=== PATIENT | male | born 2000 | race Caucasian/White ===

== ENCOUNTER 2020-08-07 08:16 | Outpatient (REF) | payer OTHER, SELFPAY ==
[2020-08-07 12:03] LABS: MANUAL DIFF FLAG NO
[2020-08-07 12:06] LABS: Basophils Percent Auto 0.5 % (0-2); Eosinophils Absolute Auto 0.1 X10*3/uL (0.0-0.4); Eosinophils Percent Auto 1.5 % (0-4); Hematocrit 45.5 % (42-52); Hemoglobin 15.2 g/dl (14.0-18.0); Lymphocytes Absolute Auto 2.8 X10*3/uL (1.2-4.9); Lymphocytes Percent Auto 48.4 % (20-40); Mean Corpuscular HGB Conc 33.4 g/dl (31.0-36.0); Mean Corpuscular Hemoglobin 29.6 pg (27.0-33.0); Mean Corpuscular Volume 88.5 fL (80-98); Mean Platelet Volume 9.6 fL (9.4-12.4); Monocytes Absolute Auto 0.5 X10*3/uL (0.1-1.2); Monocytes Percent Auto 9.1 % (2-11); Neutrophils Absolute Auto 2.4 X10*3/uL (2.0-8.3); Neutrophils Percent Auto 40.5 % (45-73); Platelet Count 271 X10*3/uL (160-400); Red Blood Count 5.14 X10*6/uL (4.60-5.80); Red Cell Distribution Width 12.1 % (11.0-16.0); White Blood Count 5.9 X10*3/uL (4.8-10.8)
[2020-08-07 12:32] LABS: Alanine Aminotransferase 43 U/L (0-40); Albumin Level 4.7 g/dL (3.5-5.0); Alkaline Phosphatase 100 U/L (39-117); Aspartate Amino Transferase 27 U/L (5-37); Bilirubin Direct 0.4 mg/dL (0.0-0.5); Bilirubin Total 1.1 mg/dL (0.0-1.0); Blood Urea Nitrogen 13 mg/dL (9-16); Calcium 9.7 mg/dL (8.4-10.2); Cholesterol 183 mg/dL; Estimated Glomerular Filt Rate > 60; HDL Cholesterol 45 mg/dL; LDL Cholesterol Calculated 116 mg/dl; Total Protein 7.9 g/dL (6.5-8.0); Triglycerides 110 mg/dL
== END 2020-08-07 08:17 | disposition home or self-care (01) ==
LOC: HO.WFDLDS 08:16
PROVIDERS: PCP Pediatrics; Visit Provider Dermatology
DX: L70.9 Acne, unspecified (principal)
CPT/HCPCS: 36415; 80061; 80076; 82310; 82565; 84520; 85025

== ENCOUNTER 2020-09-16 08:16 | Outpatient (REF) | payer OTHER, SELFPAY ==
[2020-09-16 10:40] LABS: MANUAL DIFF FLAG NO
[2020-09-16 10:44] LABS: Basophils Percent Auto 0.4 % (0-2); Eosinophils Absolute Auto 0.1 X10*3/uL (0.0-0.4); Eosinophils Percent Auto 2.2 % (0-4); Hematocrit 43.3 % (42-52); Hemoglobin 14.6 g/dl (14.0-18.0); Imm Gran Abs Auto 0.01 X10*3/uL (0.00-0.03); Imm Gran Pct Auto 0.2 % (0.0-0.4); Lymphocytes Absolute Auto 2.4 X10*3/uL (1.2-4.9); Lymphocytes Percent Auto 48.8 % (20-40); Mean Corpuscular HGB Conc 33.7 g/dl (31.0-36.0); Mean Corpuscular Hemoglobin 29.6 pg (27.0-33.0); Mean Corpuscular Volume 87.7 fL (80-98); Mean Platelet Volume 10.1 fL (9.4-12.4); Monocytes Absolute Auto 0.5 X10*3/uL (0.1-1.2); Monocytes Percent Auto 10.1 % (2-11); Neutrophils Absolute Auto 1.9 X10*3/uL (2.0-8.3); Neutrophils Percent Auto 38.3 % (45-73); Platelet Count 252 X10*3/uL (160-400); Red Blood Count 4.94 X10*6/uL (4.60-5.80); Red Cell Distribution Width 12.2 % (11.0-16.0)
[2020-09-16 12:32] LABS: Alanine Aminotransferase 52 U/L (0-40); Albumin Level 4.7 g/dL (3.5-5.0); Alkaline Phosphatase 90 U/L (39-117); Aspartate Amino Transferase 32 U/L (5-37); Bilirubin Direct 0.3 mg/dL (0.0-0.5); Bilirubin Total 0.7 mg/dL (0.0-1.0); Cholesterol 193 mg/dL; HDL Cholesterol 44 mg/dL; LDL Cholesterol Calculated 127 mg/dl; Total Protein 7.8 g/dL (6.5-8.0); Triglycerides 114 mg/dL
== END 2020-09-16 08:17 | disposition home or self-care (01) ==
LOC: HO.WFDLDS 08:16
PROVIDERS: Visit Provider Dermatology
DX: L70.0 Acne vulgaris (principal)
CPT/HCPCS: 36415; 80061; 80076; 85025

== ENCOUNTER 2020-10-16 07:36 | Outpatient (REF) | payer OTHER, SELFPAY ==
[2020-10-16 10:37] LABS: MANUAL DIFF FLAG NO
[2020-10-16 10:57] LABS: Basophils Percent Auto 0.4 % (0-2); Eosinophils Absolute Auto 0.1 X10*3/uL (0.0-0.4); Eosinophils Percent Auto 1.8 % (0-4); Hematocrit 41.7 % (42-52); Hemoglobin 13.8 g/dl (14.0-18.0); Imm Gran Abs Auto 0.01 X10*3/uL (0.00-0.03); Imm Gran Pct Auto 0.2 % (0.0-0.4); Lymphocytes Absolute Auto 2.7 X10*3/uL (1.2-4.9); Lymphocytes Percent Auto 48.8 % (20-40); Mean Corpuscular HGB Conc 33.1 g/dl (31.0-36.0); Mean Corpuscular Hemoglobin 29.5 pg (27.0-33.0); Mean Corpuscular Volume 89.1 fL (80-98); Monocytes Absolute Auto 0.6 X10*3/uL (0.1-1.2); Monocytes Percent Auto 11.1 % (2-11); Neutrophils Absolute Auto 2.1 X10*3/uL (2.0-8.3); Neutrophils Percent Auto 37.7 % (45-73); Platelet Count 260 X10*3/uL (160-400); Red Blood Count 4.68 X10*6/uL (4.60-5.80); Red Cell Distribution Width 12.5 % (11.0-16.0); White Blood Count 5.6 X10*3/uL (4.8-10.8)
[2020-10-16 11:22] LABS: Alanine Aminotransferase 37 U/L (0-40); Albumin Level 4.4 g/dL (3.5-5.0); Alkaline Phosphatase 99 U/L (39-117); Aspartate Amino Transferase 26 U/L (5-37); Bilirubin Direct 0.2 mg/dL (0.0-0.5); Bilirubin Total 0.4 mg/dL (0.0-1.0); Cholesterol 163 mg/dL; HDL Cholesterol 33 mg/dL; LDL Cholesterol Calculated 87 mg/dl; Total Protein 7.6 g/dL (6.5-8.0); Triglycerides 217 mg/dL
== END 2020-10-16 07:37 | disposition home or self-care (01) ==
LOC: HO.WFDLDS 07:36
PROVIDERS: PCP Pediatrics; Visit Provider Dermatology
DX: L70.0 Acne vulgaris (principal)
CPT/HCPCS: 36415; 80061; 80076; 85025

== ENCOUNTER 2020-11-14 08:33 | Outpatient (REF) | payer OTHER, SELFPAY ==
[2020-11-14 10:24] LABS: MANUAL DIFF FLAG NO
[2020-11-14 10:28] LABS: Basophils Percent Auto 0.2 % (0-2); Eosinophils Absolute Auto 0.1 X10*3/uL (0.0-0.4); Eosinophils Percent Auto 1.6 % (0-4); Hematocrit 41.7 % (42-52); Hemoglobin 13.9 g/dl (14.0-18.0); Lymphocytes Absolute Auto 2.2 X10*3/uL (1.2-4.9); Lymphocytes Percent Auto 49.5 % (20-40); Mean Corpuscular HGB Conc 33.3 g/dl (31.0-36.0); Mean Corpuscular Hemoglobin 29.6 pg (27.0-33.0); Mean Corpuscular Volume 88.9 fL (80-98); Mean Platelet Volume 9.9 fL (9.4-12.4); Monocytes Absolute Auto 0.5 X10*3/uL (0.1-1.2); Monocytes Percent Auto 10.2 % (2-11); Neutrophils Absolute Auto 1.7 X10*3/uL (2.0-8.3); Neutrophils Percent Auto 38.5 % (45-73); Platelet Count 244 X10*3/uL (160-400); Red Blood Count 4.69 X10*6/uL (4.60-5.80); Red Cell Distribution Width 12.6 % (11.0-16.0); White Blood Count 4.4 X10*3/uL (4.8-10.8)
[2020-11-14 10:59] LABS: Alanine Aminotransferase 56 U/L (0-40); Albumin Level 4.4 g/dL (3.5-5.0); Alkaline Phosphatase 95 U/L (39-117); Aspartate Amino Transferase 34 U/L (5-37); Bilirubin Direct 0.2 mg/dL (0.0-0.5); Bilirubin Total 0.8 mg/dL (0.0-1.0); Cholesterol 175 mg/dL; HDL Cholesterol 37 mg/dL; LDL Cholesterol Calculated 112 mg/dl; Total Protein 7.5 g/dL (6.5-8.0); Triglycerides 133 mg/dL
== END 2020-11-14 08:34 | disposition home or self-care (01) ==
LOC: HO.WFDLDS 08:33
PROVIDERS: Visit Provider Dermatology
DX: L70.0 Acne vulgaris (principal)
CPT/HCPCS: 36415; 80061; 80076; 85025

== ENCOUNTER 2020-12-22 07:34 | Outpatient (REF) | payer OTHER, SELFPAY ==
[2020-12-22 10:52] LABS: MANUAL DIFF FLAG NO
[2020-12-22 11:11] LABS: Basophils Percent Auto 0.2 % (0-2); Eosinophils Absolute Auto 0.1 X10*3/uL (0.0-0.4); Hematocrit 42.4 % (42-52); Hemoglobin 14.4 g/dl (14.0-18.0); Imm Gran Abs Auto 0.02 X10*3/uL (0.00-0.03); Imm Gran Pct Auto 0.3 % (0.0-0.4); Lymphocytes Absolute Auto 3.1 X10*3/uL (1.2-4.9); Lymphocytes Percent Auto 52.4 % (20-40); Mean Corpuscular Hemoglobin 30.3 pg (27.0-33.0); Mean Corpuscular Volume 89.3 fL (80-98); Mean Platelet Volume 10.3 fL (9.4-12.4); Monocytes Absolute Auto 0.6 X10*3/uL (0.1-1.2); Monocytes Percent Auto 9.7 % (2-11); Neutrophils Absolute Auto 2.1 X10*3/uL (2.0-8.3); Neutrophils Percent Auto 35.4 % (45-73); Platelet Count 259 X10*3/uL (160-400); Red Blood Count 4.75 X10*6/uL (4.60-5.80); Red Cell Distribution Width 12.5 % (11.0-16.0)
[2020-12-22 11:22] LABS: Alanine Aminotransferase 48 U/L (0-40); Albumin Level 4.5 g/dL (3.5-5.0); Alkaline Phosphatase 88 U/L (39-117); Aspartate Amino Transferase 33 U/L (5-37); Bilirubin Direct 0.3 mg/dL (0.0-0.5); Bilirubin Total 0.8 mg/dL (0.0-1.0); Cholesterol 191 mg/dL; HDL Cholesterol 37 mg/dL; LDL Cholesterol Calculated 121 mg/dl; Total Protein 7.9 g/dL (6.5-8.0); Triglycerides 166 mg/dL
== END 2020-12-22 07:35 | disposition home or self-care (01) ==
LOC: HO.WFDLDS 07:34
PROVIDERS: Visit Provider Dermatology
DX: L70.0 Acne vulgaris (principal)
CPT/HCPCS: 36415; 80061; 80076; 85025

== ENCOUNTER 2021-01-26 07:32 | Outpatient (REF) | payer OTHER, SELFPAY ==
[2021-01-26 10:38] LABS: MANUAL DIFF FLAG NO
[2021-01-26 10:41] LABS: Basophils Percent Auto 0.4 % (0-2); Eosinophils Absolute Auto 0.1 X10*3/uL (0.0-0.4); Eosinophils Percent Auto 2.4 % (0-4); Hematocrit 43.4 % (42-52); Hemoglobin 14.7 g/dl (14.0-18.0); Imm Gran Abs Auto 0.01 X10*3/uL (0.00-0.03); Imm Gran Pct Auto 0.2 % (0.0-0.4); Lymphocytes Absolute Auto 2.8 X10*3/uL (1.2-4.9); Lymphocytes Percent Auto 54.8 % (20-40); Mean Corpuscular HGB Conc 33.9 g/dl (31.0-36.0); Mean Corpuscular Hemoglobin 30.2 pg (27.0-33.0); Mean Corpuscular Volume 89.1 fL (80-98); Monocytes Absolute Auto 0.5 X10*3/uL (0.1-1.2); Monocytes Percent Auto 10.6 % (2-11); Neutrophils Absolute Auto 1.6 X10*3/uL (2.0-8.3); Neutrophils Percent Auto 31.6 % (45-73); Platelet Count 267 X10*3/uL (160-400); Red Blood Count 4.87 X10*6/uL (4.60-5.80); Red Cell Distribution Width 12.2 % (11.0-16.0); White Blood Count 5.1 X10*3/uL (4.8-10.8)
[2021-01-26 11:13] LABS: Alanine Aminotransferase 37 U/L (0-40); Albumin Level 4.6 g/dL (3.5-5.0); Alkaline Phosphatase 93 U/L (39-117); Aspartate Amino Transferase 27 U/L (5-37); Bilirubin Direct 0.2 mg/dL (0.0-0.5); Bilirubin Total 0.6 mg/dL (0.0-1.0); Cholesterol 198 mg/dL; HDL Cholesterol 35 mg/dL; LDL Cholesterol Calculated 135 mg/dl; Triglycerides 140 mg/dL
== END 2021-01-26 07:33 | disposition home or self-care (01) ==
LOC: HO.WFDLDS 07:32
PROVIDERS: Visit Provider Dermatology
DX: L70.0 Acne vulgaris (principal)
CPT/HCPCS: 36415; 80061; 80076; 85025

== ENCOUNTER 2021-03-03 08:33 | Outpatient (REF) | payer OTHER, SELFPAY ==
[2021-03-03 10:46] LABS: MANUAL DIFF FLAG NO
[2021-03-03 11:04] LABS: Basophils Percent Auto 0.4 % (0-2); Eosinophils Absolute Auto 0.2 X10*3/uL (0.0-0.4); Eosinophils Percent Auto 3.7 % (0-4); Hematocrit 43.3 % (42-52); Hemoglobin 14.6 g/dl (14.0-18.0); Imm Gran Abs Auto 0.01 X10*3/uL (0.00-0.03); Imm Gran Pct Auto 0.2 % (0.0-0.4); Lymphocytes Absolute Auto 2.7 X10*3/uL (1.2-4.9); Lymphocytes Percent Auto 47.9 % (20-40); Mean Corpuscular HGB Conc 33.7 g/dl (31.0-36.0); Mean Corpuscular Hemoglobin 30.2 pg (27.0-33.0); Mean Corpuscular Volume 89.5 fL (80-98); Mean Platelet Volume 10.1 fL (9.4-12.4); Monocytes Absolute Auto 0.5 X10*3/uL (0.1-1.2); Monocytes Percent Auto 8.3 % (2-11); Neutrophils Absolute Auto 2.3 X10*3/uL (2.0-8.3); Neutrophils Percent Auto 39.5 % (45-73); Platelet Count 267 X10*3/uL (160-400); Red Blood Count 4.84 X10*6/uL (4.60-5.80); Red Cell Distribution Width 12.2 % (11.0-16.0); White Blood Count 5.7 X10*3/uL (4.8-10.8)
[2021-03-03 11:14] LABS: Bilirubin Direct 0.2 mg/dL (0.0-0.5); Bilirubin Total 0.6 mg/dL (0.0-1.0)
[2021-03-03 11:15] LABS: Alanine Aminotransferase 24 U/L (0-40); Albumin Level 4.6 g/dL (3.5-5.0); Alkaline Phosphatase 99 U/L (39-117); Aspartate Amino Transferase 22 U/L (5-37); Cholesterol 180 mg/dL; HDL Cholesterol 33 mg/dL; LDL Cholesterol Calculated 98 mg/dl; Total Protein 8.1 g/dL (6.5-8.0); Triglycerides 248 mg/dL
== END 2021-03-03 08:34 | disposition home or self-care (01) ==
LOC: HO.WFDLDS 08:33
PROVIDERS: Visit Provider Dermatology
DX: L70.0 Acne vulgaris (principal)
CPT/HCPCS: 36415; 80061; 80076; 85025

== ENCOUNTER 2024-06-05 09:13 | Outpatient (AMB) | payer OTHER, SELFPAY ==
--- NOTE | 2024-06-05 09:39 | MHC.PC.OV ---
Vital Signs 06/05/24 09:46 Height 5 ft 11 in Weight 223 lb 4 oz BMI 31.1 BP 134/76 Blood Pressure Location Rt brachial Position Sitting Respiration 14 Pulse 93 Pulse Source Pulse Oximeter Pulse Oximetry (%) 100 Oxygen Delivery Method Room Air Intake Visit Reasons: DISTRIBUTION COORDINATOR // Establish care Intake Note: new patient to establish care Auto Service Writer Required: No Allergies Penicillins Adverse Reaction (Unknown, Verified 06/05/24 09:49) Rash Medication List - Last Reconciled 06/05/24 by MAIA Morales No Known Home Meds Tobacco use date assessed: 06/05/24 Dental Screening Dental Screen Date: 06/05/24 Did you have a dental visit in the last 12 months?: Yes Did you have a dental problem in the last 6 months where you did not have access to dental care?: No Was dental information given to patient?: Patient has dentist HPI HPI Comments History of Present Illness Details Tay 23 y/o M with acne s/p accutane otherwise healthy Social: accounting Surg wisdom teeth Health Maintenance Tdap 2012, declined tdap and flu Optho - wears glasses last exam 1 year ago Specialists None Here today to est care & for a CPE Previous PCP [facility] - records reviewed before visit Offers no complaints Would like routine screeening labs Plan: RTO 1 year CPE sooner PRN PFSH Medical History (Updated 06/05/24 @ 10:02 by MAIA Morales) No pertinent past medical history Surgical History (Updated 06/05/24 @ 09:46 by Karine Meneses MA) No pertinent past surgical history Family History Paternal Grandfather Cancer Father No problems noted. Social History (Updated 06/05/24 @ 09:44 by Karine Meneses MA) Household Members: Family Household Members Other:: parents Both parents involved: Yes Caregiver staying overnight: No Housing: House Are you a primary career technical supervisor to a significant other at home: No Do you presently have visiting nurse or other home services: No 75 years or older and lives alone: No Alcohol intake: current Alcohol intake frequency: a few times a month Patient Tobacco Use Status: Never used Tobacco e-Cigarette/Vaping Use: Never Used Second Hand Smoke Exposure: No service: No Current occupational status: employed Current occupation: accountant bookkeeper Cognitive needs: No Hearing needs: No Vision needs: Yes (wear glasses) Questionnaire PHQ-9 Over the last 2 weeks, how often have you been bothered by any of the following problems? 1. Little interest or pleasure in doing things: not at all 2. Feeling down, depressed, or hopeless: not at all 3. Trouble falling or staying asleep, or sleeping too much: not at all 4. Feeling tired or having little energy: not at all 5. Poor appetite or overeating: not at all 6. Feeling bad about yourself - or that you are a failure or have let yourself or your family down: not at all 7. Trouble concentrating on things, such as reading the newspaper or watching television: not at all 8. Moving or speaking so slowly that other people could have noticed. Or the opposite - being so fidgety or restless that you have been moving around a lot more than usual: not at all 9. Thoughts that you would be better off or of hurting yourself in some way: not at all Total score: 0 Depression Screening Interpretation: Negative Depression Screening Done: Yes 29508 - PHQ-9 Billing: Yes Source: Developed by Drs. Christopher Fishman, Ernestina Norris, Nelson Oscar and colleagues, with an educational cecelia from [employer]. Thrive Questionnaire Date Thrive assessed: 06/05/24 I am a: Patient What is your living situation today?: I have a steady place to live Within the past 12 months, did the food you bought not last and you didn't have the money to get more?: Never true Within the past 12 months, did you worry whether your food would run out before you got money to buy more?: Never true Do you have trouble paying for medicines?: No Do you have trouble getting transportation to medical appointments?: No Do you have trouble paying your heating and electricity bill?: No Do you have trouble taking care of your child, family member or friend?: No Do you have trouble with day-to-day activities such as bathing, preparing meals, shopping, managing finances, etc.?: No Are you currently unemployed and looking for a job?: No Are you interested in more education?: No Please select the resources that you would like help with: None Currently or been in a relationship where the following occur: No concerns reported THRIVE Score: 0 AUDIT C Alcohol Use Questionnaire (AUDIT-C) 1. How often do you have a drink containing alcohol?: Monthly or less 2. How many drinks containing alcohol do you have on a typical day when you are drinking?: 1 or 2 3. How often do you have six or more drinks on one occasion?: Never Total Score: 1 Score Reviewed/Action Taken: Yes IVELISSE-7 AMB Questionnaire IVELISSE-7 Date IVELISSE - 7 assessed: 06/05/24 Feeling nervous, anxious, or on edge: 0 = Not at all Not being able to stop or control worryin = Not at all Worrying too much about different things: 0 = Not at all Trouble relaxin = Not at all Being so restless that it is hard to sit still: 0 = Not at all Becoming easily annoyed or irritable: 0 = Not at all Feeling afraid as if something awful might happen: 0 = Not at all Total IVELISSE-7 score (0-4 normal; 5-9 mild; 10-14 moderate; 15-21 severe): 0 Source: Developed by Drs. Christopher Fishman, Ernestina Norris, Nelson Oscar and colleagues, with an educational cecelia from [employer]. IVELISSE-7 Assessment Billing IVELISSE-7 Assessment Tool: IVELISSE-7 Assessment 49347 Review of Systems Const Details: Constitutional: Denies fever. Skin: Denies rash. Eye: Denies eye pain. ENMT: Denies sore throat and nasal congestion. Respiratory: Denies shortness of breath and cough. Gastrointestinal: Denies nausea, vomiting or abdominal pain. Cardiovascular: Denies chest pain and syncope. Genitourinary: Denies dysuria. Musculoskeletal: Denies back pain and extremity pain. Neurologic: Denies headaches, confusion, and weakness. Psychiatric: Denies suicidal thoughts and substance abuse. Allergy/ Immunologic: Denies impaired immunity. Physical exam (Primary Care) BMI Assessment/Plan discussion: High BMI High, discussed plan: lifestyle Tobacco/Smoking Status: Tobacco use Status Patient Tobacco Use Status Never used Tobacco 06/05/24 09:44 e-Cigarette/Vaping Use Never Used 06/05/24 09:44 PHQ-9: PHQ-9 Score PHQ-9: Total score 0 06/05/24 09:41 Depression Screening Interpretation: Negative Thrive Assessment: Date of Thrive Assessment Date Thrive assessed 06/05/24 06/05/24 09:41 Currently or been in a relationship where the following occur: No concerns reported Const Other: General: Well developed, well nourished, in no acute distress. Appears stated age. Head: Normocephalic, atraumatic. Eyes: Pupils are equal, round and reactive to light and accommodation. Conjunctivae are clear. Vision grossly normal. Ears: TMs clear AU, EACS WNL Nose: Patent, without discharge. Mouth: There are no ulcers or lesions noted. No inflammation, no post nasal drip, no plaques nor exudates. Neck: Supple, no adenopathy or thyromegaly. Lungs: Clear to auscultation bilaterally. No rales, rhonchi or wheeze noted. Good air flow in all ospina. Heart: Regular rate and rhythm. No murmurs, click, rubs or gallops are noted. Abdomen: Bowel sounds present in all quadrants. The abdomen is soft, nontender, with no masses or organomegaly noted. No hernias are noted. Musculoskeletal: Joints are nontender, without swelling, redness, or effusions. Range of motion is observed to be normal. Pulses: Peripheral pulses are equal and palpable bilaterally. Extremities: No clubbing, cyanosis nor edema is noted. Neurologic: Gait and station normal. Cranial Nerves 2-12 intact. Motor strength grossly symmetrical and intact. No sensory loss. Balance normal. Skin: No rashes, ulcers, or lesions noted. Turgor is good. Skin color is good. Hair and nails are without abnormalities. Psych: Normal eye contact, affect and mood appropriate, and normal interactions. Patient is alert and appropriate to context. Coding Level of Care Code New Pt Prev Care 18-39yr(17896 Diagnoses Encounter for general adult medical examination without abnormal findings Z00.00 Laboratory exam ordered as part of routine general medical examination Z00.00 Class 1 obesity due to excess calories without serious comorbidity with body mass index (BMI) of 31.0 to 31.9 in adult E66.811; E66.09; Z68.31 Obesity type: due to excess calories BMI 31.0-31.9,adult Z68.31 Additional Codes IVELISSE-7 Assessment Billing - IVELISSE-7 Assessment Tool: IVELISSE-7 Assessment 03170 ([id number]) PHQ-9 - 44899 - PHQ-9 Billing: Yes ([id number]) Assessment & Plan Assessment & Plan (1) Encounter for general adult medical examination without abnormal findings: Code(s): Z00.00 - Encounter for general adult medical examination without abnormal findings (2) Laboratory exam ordered as part of routine general medical examination: Code(s): Z00.00 - Encounter for general adult medical examination without abnormal findings Category: Medical (3) Class 1 obesity without serious comorbidity with body mass index (BMI) of 31.0 to 31.9 in adult: Code(s): E66.811 - Obesity, class 1; Z68.31 - Body mass index [BMI] 31.0-31.9, adult Category: Medical Qualifiers: Obesity type: due to excess calories Qualified Code(s): E66.811 - Obesity, class 1; E66.09 - Other obesity due to excess calories; Z68.31 - Body mass index [BMI] 31.0-31.9, adult (4) BMI 31.0-31.9,adult: Code(s): Z68.31 - Body mass index [BMI] 31.0-31.9, adult Category: Medical Plan . Orders: Orders Complete Blood Count no Diff Today Z00.00 - Encounter for general adult medical examination without abnormal findings Vitamin B12 and Folate Today Z00.00 - Encounter for general adult medical examination without abnormal findings Vitamin D 25-OH Total Today Z00.00 - Encounter for general adult medical examination without abnormal findings Comprehensive [place]. Panel Fast Today Z00.00 - Encounter for general adult medical examination without abnormal findings Hemoglobin A1c Today Z00.00 - Encounter for general adult medical examination without abnormal findings Lipid Panel Today Z00.00 - Encounter for general adult medical examination without abnormal findings Microalbumin, Random (w Creat) Today Z00.00 - Encounter for general adult medical examination without abnormal findings TSH reflex Free T4 Today Z00.00 - Encounter for general adult medical examination without abnormal findings Medications: Discontinued polymyxin B sulf-trimethoprim 10,000 unit- 1 mg/mL (Polytrim) while awake; do not exceed 6 doses in 24 hours Discontinued Reason: Patient no longer taking 1 drp ophthalmic (eye) Q3H 7 days 10 mL 1RF Patient Instructions: Walk-In Care (Urgent Care): We Make it Easy Walk-in for urgent medical issues such as: ? Seasonal Allergies ? Insect Bites ? Cough ? Diarrhea ? Acute Asthma Attacks ? Back, Knee or Joint Pain ? Ear Infection ? Fever without a Rash ? Headaches ? Nausea ? Sunbright Eye, Rash or Skin Irritation ? Sore Throat ? Sports Physicals ? Vomiting Most insurances are accepted. Patients do not need to be part of the [facility] to seek care at the walk-in clinic. Locations [facility] , [place] [address] ? [phone] [facility] Walk-In Care in [place] provides services to ages 18 and over. Open Tuesday-Tuesday: 8 a.m. to 5 p.m. and Tuesday: 9 a.m. to 3 p.m.* *Hours may vary due to staffing availability. To confirm Walk-In Care hours in [place], please call [phone]. [address] [place] [address] ? [phone] [facility] Walk-In Care in [place] provides services to ages 12 and over. Open Tuesday-Tuesday: 8 a.m. to 5 p.m. Hours may vary due to staffing availability. To confirm Walk-In Care hours in [place], please call [phone]. LABORATORY SERVICES: [facility] ? Primary Location [address] [place] [address] Tuesday through Tuesday 6:00 AM ? 5:00 PM Tuesday 7:00 AM ? 11:00 AM* [phone] The [facility] is centrally located near the front entrance of the [facility] for easy outpatient access. Convenient parking is provided for outpatients. *Hours may vary due to staffing availability. To confirm Laboratory hours for any location, please call [phone]. Offsite Location For your convenience, we offer offsite laboratory draw stations at the following locations: [address] [place] [address] ? [facility] [address], [address] Tuesday through Tuesday 7:30 AM ? 1:00 PM* [phone] *Hours may vary due to staffing availability. To confirm Laboratory hours for any location, please call [phone]. [place] ? [address] Tuesday through Tuesday 6:00 AM ? 3:30 PM* Tuesday 6:30 AM ? 3 PM* [phone] *Hours may vary due to staffing availability. To confirm Laboratory hours for any location, please call [phone]. [address] [facility] Tuesday through Tuesday 7:30 AM ? 4:00 PM* [phone] *Hours may vary due to staffing availability. To confirm Laboratory hours for any location, please call [phone]. [address] [facility] Tuesday through 9:00 AM ? 4:00 PM* *Hours may vary due to staffing availability. To confirm Laboratory hours for any location, please call [phone]. Appointments are not necessary. Walk-ins are welcome. Like all the departments throughout the [facility], our Lab undergoes frequent reviews to ensure the quality and accuracy of test results, and our staff takes special pride in its status as a nationally accredited facility. Patient Portal: ONE PATIENT. ONE RECORD. BETTER CARE. [facility] has a fully integrated, cutting-edge mobile electronic health information system that has revolutionized the way we care for our patients and manage our organization. This system improves communication and coordination enabling us to provide safe, higher-quality care, and an overall positive experience for staff and patients. Our first priority, as always, is to deliver the highest quality care possible. The system is running in the background supporting that priority. This portal is for all [facility] services and practices. If you are experiencing any technical difficulties with enrolling or logging into the Patient Portal please complete the [facility] Patient Portal Technical Support Form. [facility] now offers a new secure on-line interactive tool for patients to review their health information ? Patient Portal. This interactive web portal will enable patients and their families to take an active role in their care by providing easy, secure access to their health information via the internet. The Patient Portal provides patients with instant access to their health information, including laboratory results, medications, allergies, demographic information, visit history, and more. In addition to managing their own care, parents and health care proxies with authorized consent will appreciate the ability to access the records of those individuals for whom they provide care. Please note: if you wish to gain access (Proxy) to another patient?s portal, you will be required to come to the Medical Records Department in person at [facility]. Both the patient giving proxy access and the proxy will need to provide photo identification and complete the appropriate authorization. The Patient Portal also allows track their appointments online. The [facility] Patient Portal also saves patients time by allowing them to submit updates to their demographic and contact information prior to their visits. Portal email notifications will also alert patients to any new activity on their portal, such as test results and new appointments. In order to initially enroll in the [facility] Patient Portal, you will need to enter some required information including the following: ? your [facility] Medical Record number ? your personal home email address ? name ? date of Please note: In order to enroll in the [facility] Patient Portal, we need to have your email address on file in your electronic medical record. The email address needs to be specific for one person (yourself) in order for your Portal enrollment to be successful. You can update your email address in person with our Registration staff when you are registering for a hospital visit. Otherwise, you will need to come to the Health Information Management (Medical Records) Department at [facility]. We are open from Tuesday ? Tuesday from 7:30 a.m. ? 4:30 p.m. You will be required to present a photo id. Once you have successfully enrolled in the Patient Portal, you will receive a one-time user id and password for the Portal, sent to your email address. This will allow you to log into the Patient Portal within 99 hrs and reset your own logon id and password, and define personal security questions. Once your permanent login and password have been set, you can log into the [facility] Patient Portal at any time via the blue button above or from the Portal Logon button on any page of the [facility] website. [facility] encourage all of our patients to enroll in Patient Portal as it presents a valuable opportunity for patients and their families to actively participate in their care and stay healthy Welcome to [facility]. We look forward to working with you. Health screenings for men You should visit your health care provider regularly, even if you feel healthy. The purpose of these visits is to: Screen for medical issues Assess your risk for future medical problems Encourage a healthy lifestyle Update vaccinations and other preventive care services Help you get to know your provider in case of an illness Information Even if you feel fine, you should still see your provider for regular checkups. These visits can help you avoid problems in the future. For example, the only way to find out if you have high blood pressure is to have it checked regularly. High blood sugar and high cholesterol level also may not have any symptoms in the early stages. Simple blood tests can check for these conditions. There are specific times when you should see your provider or receive specific health screenings. The [place] Preventive Services Task Force publishes a list of recommended screenings. Below are screening guidelines for men ages 40 to 64. BLOOD PRESSURE SCREENING Have your blood pressure checked at least once every year. Watch for blood pressure screenings in your area. Ask your provider if you can stop in to have your blood pressure checked. Ask your provider if you need your blood pressure checked more often if: You have diabetes, heart disease, kidney problems, or are overweight or have certain other health conditions You have a first-degree relative with high blood pressure You are Black Your blood pressure top number is from 120 to 129 mm Hg, or the bottom number is from 70 to 79 mm Hg If the top number is 130 mm Hg or greater or the bottom number is 80 mm Hg or greater, this is considered stage 1 hypertension. Schedule an appointment with your provider to learn how you can lower your blood pressure. Effects of age on blood pressure CHOLESTEROL SCREENING Cholesterol screening should begin at age 35 for men with no known risk factors for coronary heart disease. Repeat cholesterol screening should take place: Every 5 years for men with normal cholesterol levels More often if changes occur in lifestyle (including weight gain and diet) More often if you have diabetes, heart disease, kidney problems, or certain other conditions COLORECTAL CANCER SCREENING If you are under age 45, talk to your provider about getting screened. You may need to be screened if you have a strong family history of colon cancer or polyps. Screening may also be considered if you have risk factors such as a history of inflammatory bowel disease or polyps. If you are age 45 to 75, you should be screened for colorectal cancer. There are several screening tests available: A stool-based fecal occult blood (gFOBT) or fecal immunochemical test (FIT) every year A stool sDNA test every 1 to 3 years Flexible sigmoidoscopy every 5 years or every 10 years with stool testing FIT done every year CT colonography (virtual colonoscopy) every 5 years Colonoscopy every 10 years You may need a colonoscopy more often if you have risk factors for colorectal cancer, such as: Ulcerative colitis A personal or family history of colorectal cancer A history of growths in your colon called adenomatous polyps DENTAL EXAM Go to the dentist once or twice every year for an exam and cleaning. Your dentist will evaluate if you have a need for more frequent visits. DIABETES SCREENING All adults who do not have risk factors for diabetes should be screened starting at age 35 and repeated every 3 years. If you have other risk factors for diabetes, such as a first degree relative with diabetes, overweight or obesity, high blood pressure, prediabetes, or a history of heart disease, you may be tested more often. If you are overweight and have other risk factors, such as high blood pressure and are planning to become , screening is recommended. EYE EXAM Have an eye exam every 2 to 4 years ages 40 to 54 and every 1 to 3 years ages 55 to 64. Your provider may recommend more frequent eye exams if you have vision problems or glaucoma risk. Have an eye exam that includes an examination of your retina (back of your eye) at least every year if you have diabetes. IMMUNIZATIONS Commonly needed vaccines include: Flu shot: get one every year COVID-19 vaccine: ask your provider what is best for you Tetanus-diphtheria and acellular pertussis (Tdap) vaccine: have as one of your tetanus-diphtheria vaccines if you did not receive it as an adolescent Tetanus-diphtheria: have a booster (or Tdap) every 10 years Varicella vaccine: receive 2 doses if you never had chickenpox or the varicella vaccine and were born in 1980 or after Hepatitis B vaccine: receive 2, 3, or 4 doses, depending on your exact circumstances, if you did not receive these as a child or adolescent, until age 59 Shingles (herpes zoster) vaccine: at or after age 50 Ask your provider if you should receive other immunizations, especially if you have certain medical conditions, such as diabetes or are at increased risk for some diseases such as pneumonia. INFECTIOUS DISEASE SCREENING Screening for hepatitis C: all adults ages 18 to 79 should get a one-time test for hepatitis C. Screening for human immunodeficiency virus (HIV): all people ages 15 to 65 should get a one-time test for HIV. Depending on your lifestyle and medical history, you may need to be screened for infections such as syphilis, chlamydia, and other infections. LUNG CANCER SCREENING You should have an annual screening for lung cancer with low-dose computed tomography (LDCT) if: You are age 50 to 80 years AND You have a 20 pack-year smoking history AND You currently smoke or have quit within the past 15 years OSTEOPOROSIS SCREENING If you are age 50 to 64 and have risk factors for osteoporosis, you should discuss screening with your provider. Risk factors can include long-term steroid use, low body weight, smoking, heavy alcohol use, having a fracture after age 50, or a family history of hip fracture or osteoporosis. Osteoporosis PHYSICAL EXAM All adults should visit their provider from time to time, even if they are healthy. The purpose of these visits is to: Screen for diseases Assess risk of future medical problems Encourage a healthy lifestyle Update vaccinations and other preventive care services Maintain a relationship with a provider in case of an illness Your height, weight, and body mass index (BMI) should be checked at every exam. During your exam, your provider may ask you about: Depression and anxiety Diet and exercise Alcohol and tobacco use Safety, such as use of seat belts and smoke detectors Your medicines and risk for interactions PROSTATE CANCER SCREENING If you're 55 through 69 years old, before having the test, talk to your provider about the pros and cons of having a PSA test. Ask about: Whether screening decreases your chance of dying from prostate cancer. Whether there is any harm from prostate cancer screening, such as side effects from testing or overtreatment of cancer when discovered. Whether you have a higher risk of prostate cancer than others. If you are age 55 or younger, screening is not generally recommended. You should talk with your provider about if you have a higher risk for prostate cancer. Risk factors include: Having a family history of prostate cancer (especially a brother or father) Being If you choose to be tested, the PSA blood test is repeated over time (yearly or less often), though the best frequency is not known. Prostate examinations are no longer routinely done on men with no symptoms. Prostate cancer SKIN EXAM Your provider may check your skin for signs of skin cancer, especially if you're at high risk. People at high risk include those who have had skin cancer before, have close relatives with skin cancer, or have a weakened immune system. TESTICULAR EXAM The [place] Preventive Services Task Force (USPSTF) now recommends against performing testicular self-exams. Doing testicular self-exams has been shown to have little to no benefit.
[2024-06-05 09:46] VITALS: BP 134/76; PULSE 93; RESP 14; O2SAT 100; BMI 31.1
--- OUTSIDE RECORDS SUMMARY | 2024-06-06 19:23 | XMS_ITS | Data Portability ---
Author Organization [facility], [address] Address [address] [place] [address] Assessment No assessment recorded. Plan of Treatment Reminders Order Date Submit Date Provider Last Modified By Organization Details Last Modified Time Details Appointments None record ed. Lab None record ed. Referral None record ed. Procedures None record ed. Surgeries None record ed. Imaging None record ed. Medication Orders None record ed. Patient TargetsNo targets recorded. Patient InstructionsNo instructions recorded. Reason for Referral None Reported. Procedures Surgical History Date Name Laterality Status Provider Name and Address Organization Details Recorded Time OC-UDS Send Out Template NON DOT completed [facility] 11/24/2023 13:48:07 Imaging Results None recorded. Procedure Notes None recorded. Medical Equipment None Reported. Vitals None Recorded Social History None recorded. Functional Status None recorded. Mental Status None recorded. Family History Nothing Reported. Medical History No medical history recorded. Past Encounters Encounter ID Performer Location Encounter Start Date Encounter Closed Date Diagnosis/Indication Diagnosis SNOMED-CT Code Diagnosis ICD10 Code [id number] [facility]OCK [address] [facility] [address] [place] [address] 11/24/2023 12:40:52 11/24/2023 14:32:27 History and physical examination, occupation 296666253 Z02.1 Health Concerns Section Related Observation LastModified by Organization Detai ls LastModified Time None Recorded Concern Status LastModified by Organization Details LastModified Time None Recorded Advance Directives Directive None Recorded Payers Encounter Date Sequence Insurance Name Policy Number Policy Mondragon Covered Member ID Mondragon Member ID Guarantor Name 11/24/2023 OC-ESCREEN Oc-Medexpr ess Occ Med Generic (Move To Hold) [[id number]] [id number] Tay Nair
== END 2024-06-05 10:04 | disposition home or self-care (01) ==
PROVIDERS: PCP Nurse Practitioner Family; Visit Provider Nurse Practitioner Family
DX: Z00.00 Encounter for general adult medical examination without abnormal findings (principal); E66.811 Obesity, class 1; E66.09 Other obesity due to excess calories; Z68.31 Body mass index [BMI] 31.0-31.9, adult

== ENCOUNTER → 2024-06-05 09:13 | Outpatient (BNVA) | payer OTHER, SELFPAY | PROVIDERS: PCP Nurse Practitioner Family; Visit Provider Nurse Practitioner Family | DX: Z00.00 Encounter for general adult medical examination without abnormal findings (principal); E66.811 Obesity, class 1; Z68.31 Body mass index [BMI] 31.0-31.9, adult | CPT/HCPCS: 96127 ==

== ENCOUNTER 2024-06-05 10:16 | Outpatient (REF) | payer OTHER, SELFPAY ==
[2024-06-05 11:52] LABS: Hematocrit 43.7 % (42.0-52.0); Hemoglobin 14.8 g/dl (14.0-18.0); Mean Corpuscular HGB Conc 33.9 g/dl (31.0-36.0); Mean Corpuscular Volume 88.6 fL (80.0-98.0); Mean Platelet Volume 9.7 fL (9.4-12.4); Platelet Count 284 X10*3/uL (160-400); Red Blood Count 4.93 X10*6/uL (4.60-5.80); Red Cell Distribution Width 12.1 % (11.0-16.0); White Blood Count 5.6 X10*3/uL (4.8-10.8)
[2024-06-05 12:14] LABS: Estimated Average Glucose 108 mg/dL; Hemoglobin A1C 130.9429 umol/L; Hemoglobin A1c % 5.4 % (<6.0)
[2024-06-05 12:49] LABS: TSH reflex Free T4 1.35 uIU/mL (0.32-4.0); Vitamin D 25-OH Total 16.8 ng/mL (>30)
[2024-06-05 12:59] LABS: Anion Gap 13 (12-20)
[2024-06-05 13:03] LABS: Alanine Aminotransferase 44 U/L (0-40); Albumin Level 4.7 g/dL (3.5-5.0); Alkaline Phosphatase 78 U/L (39-117); Aspartate Amino Transferase 29 U/L (5-37); Bilirubin Total 0.6 mg/dL (0.0-1.0); Blood Urea Nitrogen 9 mg/dL (9-16); Calcium 9.2 mg/dL (8.4-10.2); Carbon Dioxide 28 mmol/L (22-29); Chloride 103 mmol/L (96-108); Cholesterol 201 mg/dL (<200); Estimated Glomerular Filt Rate > 60; Folate 10.1 ng/mL (> or = 4.0); Glucose Fasting 93 mg/dL (60-99); HDL Cholesterol 43 mg/dL (>40); LDL Cholesterol Calculated 125 mg/dL (<100); Potassium 3.9 mmol/L (3.3-5.1); Sodium 140 mmol/L (135-145); Total Protein 8.2 g/dL (6.5-8.0); Triglycerides 166 mg/dL (<150); Vitamin B12 744 pg/mL (200-900)
== END 2024-06-05 10:17 | disposition home or self-care (01) ==
LOC: HO.WFDLDS 10:16
PROVIDERS: Visit Provider Nurse Practitioner Family
DX: Z00.00 Encounter for general adult medical examination without abnormal findings (principal); Z13.1 Encounter for screening for diabetes mellitus; Z13.6 Encounter for screening for cardiovascular disorders
CPT/HCPCS: 36415; 80053; 80061; 82306; 82607; 82746; 83036; 84443; 85027

== ENCOUNTER 2025-06-14 07:51 | Outpatient (REF) | payer OTHER, SELFPAY ==
[2025-06-14 12:56] LABS: Hematocrit 45.7 % (42.0-52.0); Hemoglobin 15.6 g/dl (14.0-18.0); Mean Corpuscular HGB Conc 34.1 g/dl (31.0-36.0); Mean Corpuscular Hemoglobin 30.2 pg (27.0-33.0); Mean Corpuscular Volume 88.4 fL (80.0-98.0); NRBC Abs Auto 0.000 X10*3/uL (0.0-0.012); NRBC Pct Auto 0.0 /100WBC (0.0-0.2); Platelet Count 268 X10*3/uL (160-400); Red Blood Count 5.17 X10*6/uL (4.60-5.80); White Blood Count 4.9 X10*3/uL (4.8-10.8)
[2025-06-14 13:41] LABS: Alanine Aminotransferase 38 U/L (0-40); Albumin Level 5.2 g/dL (3.5-5.0); Alkaline Phosphatase 85 U/L (39-117); Anion Gap 12 (12-20); Aspartate Amino Transferase 31 U/L (5-37); Blood Urea Nitrogen 12 mg/dL (9-16); Calcium 10.1 mg/dL (8.4-10.2); Carbon Dioxide 26 mmol/L (22-29); Chloride 106 mmol/L (96-108); Cholesterol 193 mg/dL (<200); Estimated Glomerular Filt Rate > 60; HDL Cholesterol 46 mg/dL (>40); Potassium 4.2 mmol/L (3.3-5.1); Sodium 140 mmol/L (135-145); Total Protein 8.2 g/dL (6.5-8.0); Triglycerides 111 mg/dL (<150)
[2025-06-14 14:22] LABS: Folate 6.3 ng/mL (> or = 4.0); Vitamin B12 595 pg/mL (200-900)
[2025-06-14 14:52] LABS: CT PCR Urine NOT DETECTED (Not Detect.); NG PCR Urine NOT DETECTED (Not Detect.)
== END 2025-06-14 07:52 | disposition home or self-care (01) ==
LOC: HO.LAB 07:51
PROVIDERS: PCP Nurse Practitioner Family; Visit Provider Nurse Practitioner Family
DX: Z00.00 Encounter for general adult medical examination without abnormal findings (principal); Z13.1 Encounter for screening for diabetes mellitus; E78.2 Mixed hyperlipidemia; E55.9 Vitamin D deficiency, unspecified; R74.8 Abnormal levels of other serum enzymes; Z20.2 Contact with and (suspected) exposure to infections with a predominantly sexual mode of transmission
CPT/HCPCS: 36415; 80053; 80061; 82043; 82306; 82570; 82607; 82746; 83036; 84443; 85027; 87491; 87591; 96127

== ENCOUNTER 2025-06-14 07:51 | Outpatient (AMB) | payer OTHER, SELFPAY ==
--- NOTE | 2025-06-14 07:54 | A.OFFPC_ITS ---
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 Allergies Penicillins Adverse Reaction (Unknown, Verified 06/14/25 08:01) Rash Medication List - Last Reconciled 06/14/25 by Chantal Basurto, DIRECTOR HOME- cholecalciferol (vitamin D3) 125 mcg PO DAILY Tobacco use date assessed: 06/14/25 Dental Screening Dental Screen Date: 06/14/25 Did you have a dental visit in the last 12 months?: Yes Did you have a dental problem in the last 6 months where you did not have access to dental care?: No Was dental information given to patient?: Patient has dentist HPI HPI Comments History of Present Illness Details Tay 24 y/o M with acne s/p accutane, HLD, Vi t D Def Social: accounting Surg wisdom teeth Fhx: No changes. Mom Dad and Brother alive and well. Health Maintenance Tdap 2012, declined tdap and flu Optho - wears glasses last exam 2 year ago Specialists None History of Present Illness The patient is a 24 year old male presenting for a complete physical exam. Health Maintenance: - The patient presents for an annual phy sical exam. - He has achieved a 14-pound weight loss over the last year, with his weight decreasing from 223 lbs (BMI 31.1) to 209 lbs (BMI 29.1). - He attributes the weight loss to start ing to go to the gym. - The patient declines Tdap and flu vacc inations for this year, consistent with last year. - His last eye exam was last year, and h e has not had one this year. Hyperlipidemia: - The patient has a history of hyperlipi demia managed by lifestyle modifications. Vitamin D Deficiency: - The patient has a history of vitamin D deficiency and typically takes a supplement. - He stopped taking the supplement durin g the summer months when he had more sun exposure but has recently resumed taking it. Flight Anxiety: - The patient reports being a nervous fl ier and has difficulty sleeping on airplanes. - He has an upcoming direct flight to [place], which is 14-15 hours long, and requests medication to assist with sleep and anxiety during the flight. Past Medical History - Vitamin D deficiency - Hyperlipidemia, managed with lifestyle modifications - No history of hospitalizations or [facility] Family History - No changes in family medical history o sejal the last year. Social History - Employment: Reports work is going well . - Exercise: Recently started going to [employer]. - Alcohol use: Drinks on special occasio ns. - Substance use: Denies any drug use. - Sexual history: Not currently with a Zipnosis artner and denies any concerns for sexually transmitted diseases. - Safety: Reports wearing a seatbelt whi le in a vehicle. - Travel: Plans to travel to [facility] for a month. Health Maintenance - Repeat comprehensive lab work today, i ncluding cholesterol, vitamin D, liver enzymes, and thyroid function. - Encourage continued exercise and healt hy lifestyle habits. - Lab results will be sent to the [facility] via the online portal. - Recommended follow-up in one year for his next annual exam. Review of Systems - Constitutional: Reports feeling well. - Psychiatric: Denies anxiety or depress ion but reports situational anxiety related to flying. - Skin: Denies any changes, worries, sor es, or rashes. - Gastrointestinal: Reports normal bowel function. - Genitourinary: Reports normal urinary function. Denies lumps, bumps, or changes on testicular self-exam. - Musculoskeletal: Denies hip or back pa in with movement. Physical Exam General: Well developed, well nourished, in no acute distress. Appears stated age. Recent weight loss noted; currently 209 lbs with a BMI of 29.1. Head: Normocephalic, atraumatic. Eyes: Pupils are equal, round and reactive to light and accommodation. Conjunctivae are clear. Scleras nonicteric bilat. Vision grossly normal. Ears: TMs clear AU, EACS WNL Nose: Patent, without discharge. Neck: No carotid bruit bilat. Supple, no adenopathy or thyromegaly. Breast: Edu on SBE Lungs: Clear to auscultation bilaterally. No rales, rhonchi or wheeze noted. Good air flow in all ospina. Heart: Regular rate and rhythm. No murmurs, click, rubs or gallops are noted. Abdomen: Bowel sounds present in all quadrants. The abdomen is soft, nontender, with no masses or organomegaly noted. No hernias are noted. : Deferred. Reviewed YISSEL & recommendations. Patient reports performing self- exams regularly with no concerns. Pulses: Peripheral pulses are equal and palpable bilaterally. Extremities: No clubbing, cyanosis nor edema is noted. Neurologic: Gait and station normal. Cranial Nerves 2-12 intact. Motor strength grossly symmetrical and intact. No sensory loss. Balance normal. Skin: No rashes, ulcers, or lesions noted. Turgor is good. Skin color is good. Hair and nails are without abnormalities. Noted flat moles, nothing worrisome. Psych: Normal eye contact, affect and mood appropriate, and normal interactions. Patient is alert and appropriate to context. Mood screenings indicate no anxiety or depression. Results Pending Medical Decision Making The patient is a 24-year-old male here for a routine annual physical exam. He has made significant positive lifestyle changes over the past year, including starting to exercise, which has resulted in a 14-pound weight loss. His past medical history is significant for hyperlipidemia and vitamin D deficiency, which will be re-evaluated with today's lab work. I expect to see an improvement in his cholesterol and liver enzymes given his weight loss. The patient reported anxiety and inability to sleep related to an upcoming long flight. While lorazepam was considered, I prescribed trazodone due to its longer duration of action, which is more suitable for a 14-15 hour flight, to address both sleep and anxiety. The patient was counseled on the dosage and adminis tration. Health maintenance was reviewed; he continues to decline immunizations but is otherwise engaged in his health. The plan is to review lab results upon their return and follow up in one year for his next annual exam. Plan 1. Hyperlipidemia - Continue management with lifestyle mod ifications. - Will monitor cholesterol levels via to day's lab draw, anticipating improvement with recent weight loss. 2. Vitamin D Deficiency - Patient has resumed taking his vitamin D supplement. - Will check vitamin D level with today' s lab draw. 3. Flight Anxiety, Insomnia - Prescribed trazodone 100 mg, quantity 10 tablets, for use during his upcoming long flight. - Instructed to take one tablet about 30 minutes before desired sleep. - He may repeat the dose once if the ini tial dose is ineffective, but he should not exceed two tablets. - Prescription sent to [facility]. Patient Instructions - Please stop at the motel front desk attendant to sched ule your appointment for next year and to have your blood drawn for labs. - A prescription for Trazodone has been sent to the [facility] for you to corn picker. - For your flight, take one trazodone 10 0 mg tablet about 30 minutes before you want to fall asleep. - If you are still awake after 2 hours, you may take a second tablet. Do not take more than two tablets in total. - Keep up the great work with your exerc ise and weight management. - Your lab results should be available t windy on the patient portal. - Please schedule a follow-up visit in year for your next annual physical. Consent Patient was informed and verbally consented to the use of an ambient scribe for clinic note documentation during this visit. [facility] Medical History (Updated 06/14/25 @ 08:23 by MAIA Morales) No pertinent past medical history Surgical History (Updated 06/05/24 @ 09:46 by Karine Meneses MA) No pertinent past surgical history Family History (Updated 06/05/24 @ 09:54 by MAIA Morales) Paternal Grandfather Cancer Father No problems noted. Social History (Updated 06/05/24 @ 09:44 by Karine Meneses MA) Household Members: Family Household Members Other:: parents Both parents involved: Yes Caregiver staying overnight: No Housing: House Are you a primary special needs caregiver to a significant other at home: No Do you presently have visiting nurse or other home services: No 75 years or older and lives alone: No Alcohol intake: current Alcohol intake frequency: a few times a month Patient Tobacco Use Status: Never used Tobacco e-Cigarette/Vaping Use: Never Used Second Hand Smoke Exposure: No service: No Current occupational status: employed Current occupation: traveling repair accountant Cognitive needs: No Hearing needs: No Vision needs: Yes (wear glasses) Questionnaire PHQ-9 Over the last 2 weeks, how often have you been bothered by any of the following problems? 1. Little interest or pleasure in doing things: not at all 2. Feeling down, depressed, or hopeless: not at all 3. Trouble falling or staying asleep, or sleeping too much: not at all 4. Feeling tired or having little energy: not at all 5. Poor appetite or overeating: not at all 6. Feeling bad about yourself - or that you are a failure or have let yourself or your family down: not at all 7. Trouble concentrating on things, such as reading the newspaper or watching television: not at all 8. Moving or speaking so slowly that other people could have noticed. Or the opposite - being so fidgety or restless that you have been moving around a lot more than usual: not at all 9. Thoughts that you would be better off or of hurting yourself in some way: not at all Total score: 0 Depression Screening Interpretation: Negative Depression Screening Done: Yes 48058 - PHQ-9 Billing: Yes Source: Developed by Drs. Christopher Fishman, Ernestina Norris, Nelson Oscar and colleagues, with an educational cecelia from [employer]. Thrive Questionnaire Date Thrive assessed: 06/14/25 I am a: Patient What is your living situation today?: I have a steady place to live Within the past 12 months, did the food you bought not last and you didn't have the money to get more?: Never true Within the past 12 months, did you worry whether your food would run out before you got money to buy more?: Never true Do you have trouble paying for medicines?: No Do you have trouble getting transportation to medical appointments?: No Do you have trouble paying your heating and electricity bill?: No Do you have trouble taking care of your child, family member or friend?: No Do you have trouble with day-to-day activities such as bathing, preparing meals, shopping, managing finances, etc.?: No Are you currently unemployed and looking for a job?: No Are you interested in more education?: No Please select the resources that you would like help with: None Currently or been in a relationship where the following occur: No concerns reported THRIVE Score: 0 AUDIT C Alcohol Use Questionnaire (AUDIT-C) 1. How often do you have a drink containing alcohol?: Monthly or less 2. How many drinks containing alcohol do you have on a typical day when you are drinking?: 1 or 2 3. How often do you have six or more drinks on one occasion?: Never Total Score: 1 Score Reviewed/Action Taken: Yes IVELISSE-7 AMB Questionnaire IVELISSE-7 Date IVELISSE - 7 assessed: 06/14/25 Feeling nervous, anxious, or on edge: 0 = Not at all Not being able to stop or control worryin = Not at all Worrying too much about different things: 0 = Not at all Trouble relaxin = Not at all Being so restless that it is hard to sit still: 0 = Not at all Becoming easily annoyed or irritable: 0 = Not at all Feeling afraid as if something awful might happen: 0 = Not at all Total IVELISSE-7 score (0-4 normal; 5-9 mild; 10-14 moderate; 15-21 severe): 0 Source: Developed by Drs. Christopher Fishman, Ernestian Norris, Nelson Oscar and colleagues, with an educational cecelia from [employer]. IVELISSE-7 Assessment Billing IVELISSE-7 Assessment Tool: IVELISSE-7 Assessment 48812 Physical exam (Primary Care) Vital Signs: Last Vital Signs Temp 97.5 F 06/14/25 07:58 Pulse 103 H 06/14/25 07:58 Resp 12 06/14/25 07:58 BP 120/70 06/14/25 07:58 Pulse Ox 98 06/14/25 07:58 Oxygen Delivery Method Room Air 06/14/25 07:58 BMI result Body Mass Index 29.1 Tobacco/Smoking Status: Tobacco use Status Tobacco use date assessed 06/14/25 06/14/25 07:56 Patient Tobacco Use Status Never used Tobacco 06/14/25 07:56 e-Cigarette/Vaping Use Never Used 06/14/25 07:56 PHQ-9: PHQ-9 Score PHQ-9: Total score 0 06/14/25 07:56 Depression Screening Interpretation: Negative Thrive Assessment: Date of Thrive Assessment Date Thrive assessed 06/14/25 06/14/25 07:56 Currently or been in a relationship where the following occur: No concerns reported Coding Level of Care Code Est Pt Prev Care 18-39y(82584) Add On Preventative Visit Only Diagnoses Adult general medical exam Z00.00 Moderate mixed hyperlipidemia not requiring statin therapy E78.2 Hyperlipidemia type: moderate mixed hyperlipidemia not requiring statin therapy Vitamin D deficiency E55.9 Laboratory exam ordered as part of routine general medical examination Z00.00 Elevated liver enzymes R74.8 Influenza vaccination declined Z.21 Tetanus, diphtheria, and acellular pertussis (Tdap) vaccination declined Z28. Additional Codes IVELISSE-7 Assessment Billing - IVELISSE-7 Assessment Tool: IVELISSE-7 Assessment 15775 ([id number]) PHQ-9 - 59116 - PHQ-9 Billing: Yes ([id number]) Assessment & Plan Assessment & Plan (1) Adult general medical exam: Onset Date: ~06/14/25 Code(s): Z00.00 - Encounter for general adult medical examination without abnormal findings Category: Medical (2) Hyperlipemia: Onset Date: ~06/14/25 Code(s): E78.5 - Hyperlipidemia, unspecified Category: Medical Qualifiers: Hyperlipidemia type: moderate mixed hyperlipidemia not requiring statin therapy Qualified Code(s): E78.2 - Mixed hyperlipidemia (3) Vitamin D deficiency: Code(s): E55.9 - Vitamin D deficiency, unspecified Category: Medical (4) Laboratory exam ordered as part of routine general medical examination: Code(s): Z00.00 - Encounter for general adult medical examination without abnormal findings Category: Medical (5) Elevated liver enzymes: Code(s): R74.8 - Abnormal levels of other serum enzymes Category: Medical (6) Influenza vaccination declined: Onset Date: ~06/14/25 Code(s): Z28.21 - Immunization not carried out because of patient refusal Category: Medical (7) Tetanus, diphtheria, and acellular pertussis (Tdap) vaccination declined: Onset Date: ~06/14/25 Code(s): Z28.21 - Immunization not carried out because of patient refusal Category: Medical Plan . Orders: Orders CT NG by PCR Urine Today Z00.00 - Encounter for general adult medical examination without abnormal findings TSH reflex Free T4 Today E55.9 - Vitamin D deficiency, unspecified, E78.5 - Hyperlipidemia, unspecified, R74.8 - Abnormal levels of other serum enzymes, Z00.00 - Encounter for general adult medical examination without abnormal findings Vitamin B12 and Folate Today E55.9 - Vitamin D deficiency, unspecified, E78.5 - Hyperlipidemia, unspecified, R74.8 - Abnormal levels of other serum enzymes, Z00.00 - Encounter for general adult medical examination without abnormal findings Microalbumin, Random (w Creat) Today Z00.00 - Encounter for general adult medical examination without abnormal findings Comprehensive Met. Panel Today E55.9 - Vitamin D deficiency, unspecified, E78.5 - Hyperlipidemia, unspecified, R74.8 - Abnormal levels of other serum enzymes, Z00.00 - Encounter for general adult medical examination without abnormal findings Lipid Panel Today E55.9 - Vitamin D deficiency, unspecified, E78.5 - Hyperlipidemia, unspecified, R74.8 - Abnormal levels of other serum enzymes, Z00.00 - Encounter for general adult medical examination without abnormal findings Hemoglobin A1c Today E55.9 - Vitamin D deficiency, unspecified, E78.5 - Hyperlipidemia, unspecified, R74.8 - Abnormal levels of other serum enzymes, Z00.00 - Encounter for general adult medical examination without abnormal findings Vitamin D 25-OH Total Today E55.9 - Vitamin D deficiency, unspecified, E78.5 - Hyperlipidemia, unspecified, R74.8 - Abnormal levels of other serum enzymes, Z00.00 - Encounter for general adult medical examination without abnormal f indings Complete Blood Count no Diff Today E55.9 - Vitamin D deficiency, unspecified, E78.5 - Hyperlipidemia, unspecified, R74.8 - Abnormal levels of other serum enzymes, Z00.00 - Encounter for general adult medical examination without abnormal findings Medications: New trazodone 100 mg PO DAILY PRN 10 tabs 0RF sleep Patient Instructions: Health screenings for men You should visit your health care provider regularly, even if you feel healthy. The purpose of these visits is to: Screen for medical issues Assess your risk for future medical problems Encourage a healthy lifestyle Update vaccinations and other preventive care services Help you get to know your provider in case of an illness Information Even if you feel fine, you should still see your provider for regular checkups. These visits can help you avoid problems in the future. For example, the only way to find out if you have high blood pressure is to have it checked regularly. High blood sugar and high cholesterol level also may not have any symptoms in the early stages. Simple blood tests can check for these conditions. There are specific times when you should see your provider or receive specific health screenings. The [place] Preventive Services Task Force publishes a list of recommended screenings. Below are screening guidelines for men ages 40 to 64. BLOOD PRESSURE SCREENING Have your blood pressure checked at least once every year. Watch for blood pressure screenings in your area. Ask your provider if you can stop in to have your blood pressure checked. Ask your provider if you need your blood pressure checked more often if: You have diabetes, heart disease, kidney problems, or are overweight or have certain other health conditions You have a first-degree relative with high blood pressure You are Black Your blood pressure top number is from 120 to 129 mm Hg, or the bottom number is from 70 to 79 mm Hg If the top number is 130 mm Hg or greater or the bottom number is 80 mm Hg or greater, this is considered stage 1 hypertension. Schedule an appointment with your provider to learn how you can lower your blood pressure. Effects of age on blood pressure CHOLESTEROL SCREENING Cholesterol screening should begin at age 35 for men with no known risk factors for coronary heart disease. Repeat cholesterol screening should take place: Every 5 years for men with normal cholesterol levels More often if changes occur in lifestyle (including weight gain and diet) More often if you have diabetes, heart disease, kidney problems, or certain other conditions COLORECTAL CANCER SCREENING If you are under age 45, talk to your provider about getting screened. You may need to be screened if you have a strong family history of colon cancer or polyps. Screening may also be considered if you have risk factors such as a history of inflammatory bowel disease or polyps. If you are age 45 to 75, you should be screened for colorectal cancer. There are several screening tests available: A stool-based fecal occult blood (gFOBT) or fecal immunochemical test (FIT) every year A stool sDNA test every 1 to 3 years Flexible sigmoidoscopy every 5 years or every 10 years with stool testing FIT done every year CT colonography (virtual colonoscopy) every 5 years Colonoscopy every 10 years You may need a colonoscopy more often if you have risk factors for colorectal cancer, such as: Ulcerative colitis A personal or family history of colorectal cancer A history of growths in your colon called adenomatous polyps DENTAL EXAM Go to the dentist once or twice every year for an exam and cleaning. Your dentist will evaluate if you have a need for more frequent visits. DIABETES SCREENING All adults who do not have risk factors for diabetes should be screened starting at age 35 and repeated every 3 years. If you have other risk factors for diabetes, such as a first degree relative with diabetes, overweight or obesity, high blood pressure, prediabetes, or a history of heart disease, you may be tested more often. If you are overweight and have other risk factors, such as high blood pressure and are planning to become , screening is recommended. EYE EXAM Have an eye exam every 2 to 4 years ages 40 to 54 and every 1 to 3 years ages 55 to 64. Your provider may recommend more frequent eye exams if you have vision problems or glaucoma risk. Have an eye exam that includes an examination of your retina (back of your eye) at least every year if you have diabetes. IMMUNIZATIONS Commonly needed vaccines include: Flu shot: get one every year COVID-19 vaccine: ask your provider what is best for you Tetanus-diphtheria and acellular pertussis (Tdap) vaccine: have as one of your tetanus-diphtheria vaccines if you did not receive it as an adolescent Tetanus-diphtheria: have a booster (or Tdap) every 10 years Varicella vaccine: receive 2 doses if you never had chickenpox or the varicella vaccine and were born in 1979 or after Hepatitis B vaccine: receive 2, 3, or 4 doses, depending on your exact circumstances, if you did not receive these as a child or adolescent, until age 59 Shingles (herpes zoster) vaccine: at or after age 50 Ask your provider if you should receive other immunizations, especially if you h ave certain medical conditions, such as diabetes or are at increased risk for some diseases such as pneumonia. INFECTIOUS DISEASE SCREENING Screening for hepatitis C: all adults ages 18 to 79 should get a one-time test for hepatitis C. Screening for human immunodeficiency virus (HIV): all people ages 15 to 65 should get a one-time test for HIV. Depending on your lifestyle and medical history, you may need to be screened for infections such as syphilis, chlamydia, and other infections. LUNG CANCER SCREENING You should have an annual screening for lung cancer with low-dose computed tomography (LDCT) if: You are age 50 to 80 years AND You have a 20 pack-year smoking history AND You currently smoke or have quit within the past 15 years OSTEOPOROSIS SCREENING If you are age 50 to 64 and have risk factors for osteoporosis, you should discuss screening with your provider. Risk factors can include long-term steroid use, low body weight, smoking, heavy alcohol use, having a fracture after age 50, or a family history of hip fracture or osteoporosis. Osteoporosis PHYSICAL EXAM All adults should visit their provider from time to time, even if they are healthy. The purpose of these visits is to: Screen for diseases Assess risk of future medical problems Encourage a healthy lifestyle Update vaccinations and other preventive care services Maintain a relationship with a provider in case of an illness Your height, weight, and body mass index (BMI) should be checked at every exam. During your exam, your provider may ask you about: Depression and anxiety Diet and exercise Alcohol and tobacco use Safety, such as use of seat belts and smoke detectors Your medicines and risk for interactions PROSTATE CANCER SCREENING If you're 55 through 69 years old, before having the test, talk to your provider about the pros and cons of having a PSA test. Ask about: Whether screening decreases your chance of dying from prostate cancer. Whether there is any harm from prostate cancer screening, such as side effects from testing or overtreatment of cancer when discovered. Whether you have a higher risk of prostate cancer than others. If you are age 55 or younger, screening is not generally recommended. You should talk with your provider about if you have a higher risk for prostate cancer. Risk factors include: Having a family history of prostate cancer (especially a brother or father) Being If you choose to be tested, the PSA blood test is repeated over time (yearly or less often), though the best frequency is not known. Prostate examinations are no longer routinely done on men with no symptoms. Prostate cancer SKIN EXAM Your provider may check your skin for signs of skin cancer, especially if you're at high risk. People at high risk include those who have had skin cancer before, have close relatives with skin cancer, or have a weakened immune system. TESTICULAR EXAM The [place] Preventive Services Task Force (USPSTF) now recommends against performing testicular [email or web address]. Doing testicular self-exams has been shown to have little to no benefit.
--- OUTSIDE RECORDS SUMMARY | 2025-06-14 07:54 | XMS_ITS | Encounter Summary ---
Author Organization [facility] Address [address] [place] [address] Phone Care Team Providers Care Enterprise Data Architect Name Role Phone Taisha Potter MD Primary Care Provider [phone] Reason for Visit * Reason Comments Med Refill Encounter Details Date Type Department Care Team (Late st Contact Info) Description 07/31/2019 Refill [facility] [place] [address] [place] [address] Taisha Potter MD [address] [place] [address] Acne vulgaris Social History Tobacco Use Types Packs/Day Years Used Date Smoking Tobacco: Never Smokeless Tobacco: Never Comments:Never smoker Alcohol Use Standard Drinks/Week Comments No 0 (1 standard drink = 0.6 oz pur e alcohol) Hunger/Food Answer Date Recorded No 02/08/2019 Stable Housing Answer Date Recorded No 06/30/2019 Transportation Concerns Answer Date Rec orded No 02/08/2019 Hazards in Home Answer Date Recorded No 02/08/2019 Financing Utilities Answer Date Recorde d No 02/08/2019 Safety at Home Answer Date Recorded No 02/08/2019 Outside Support Answer Date Recorded No 02/08/2019 Understanding Health Concerns Answer Da te Recorded No 02/08/2019 Financing Health Concerns Answer Date R ecorded No 02/08/2019 Missing School or Work Answer Date Rafael rded No 02/08/2019 Sex and Gender Information Value Date Recorded Sex Assigned at Not on file Legal Sex Male 4:53 PM EDT Gender Identity Not on file Sexual Orientation Not on file documented as of this encounter Miscellaneous Notes * Telephone Encounter - Taisha Potter MD - 08/01/2019 11:36 AM EST Script sent. PPP * Telephone Encounter - Tabitha Coleman LPN - 08/01/2019 9:22 AM EST Refill request for minocycline. Last PE 02/08/19/JOD documented in this encounter Plan of Treatment Not on file documented as of this encounter Visit Diagnoses Diagnosis Acne vulgaris Other acne documented in this encounter Care Teams Enterprise Data Architect Relationship Specialty Start Date End Date Taisha Potter MD [address] [place] [address] RANI Ortiz [address] PCP - General 02/04/17 10/07/22 documented as of this encounter
--- OUTSIDE RECORDS SUMMARY | 2025-06-14 07:54 | XMS_ITS | Encounter Summary ---
Author Organization [facility] Address [address] [place] [address] Phone Care Team Providers Care High [employer] Library Media Specialist Name Role Phone Taisha Potter MD Primary Care Provider [phone]- [phone] Encounter Details Date Type Department Care Team (Late st Contact Info) Description 07/17/2013 Documentation [facility] Family Medicine [address] [place] [address] Family Medicine, Physician [address] [place], [place] [id number] Social History Tobacco Use Types Packs/Day Years Used Date Smoking Tobacco: Never Assessed Sex and Gender Information Value Date Recorded Sex Assigned at Not on file Legal Sex Male 4:53 PM EDT Gender Identity Not on file Sexual Orientation Not on file documented as of this encounter Plan of Treatment Not on file documented as of this encounter Visit Diagnoses Not on filedocumented in this encounter Care Teams [employer] Library Media Specialist Relationship Specialty Start Date End Date Taisha Potter MD [address] [facility] [place] [address] PCP - General 02/04/17 10/07/22 documented as of this encounter
--- OUTSIDE RECORDS SUMMARY | 2025-06-14 07:54 | XMS_ITS | Data Portability ---
Author Organization [facility] [address] Address [address] [place] [address] Assessment No assessment recorded. Plan of Treatment [...] Diagnosis/Indication Diagnosis SNOMED-CT Code Diagnosis ICD10 Code Diagnosis IMO Codes Diagnosis Note [id number] [facility]IR[facility] BROCK [address] [facility] [address] [place] [address] 11/24/2023 12:40:52 11/24/2023 14:32:27 History and physical examination, occupation 934817003 Z02.1 Health Concerns Section Related Observation LastModified by Organization Detai ls LastModified Time None Recorded Concern Status LastModified by Organization Details LastModified Time None Recorded Advance Directives Directive None Recorded Payers Insurance Date Sequence Insurance Name Policy Number Policy Mondragon Covered Member ID Mondragon Member ID Guarantor Name 11/24/2023 OC-ESCREEN Oc-Medexpr ess Occ Med Generic (Move To Hold) [[id number]] [id number] Tay Nair
--- OUTSIDE RECORDS SUMMARY | 2025-06-14 07:54 | XMS_ITS | Encounter Summary ---
Author Organization [facility] Address [address] [place] [address] Phone Care Team Providers Care Flame Brazing Machine Operator Name Role Phone Taisha Potter MD Primary Care Provider [phone]- [phone] Encounter Details Date Type Department Care Team (Late st Contact Info) Description 02/10/2017 Conversion Encounter [facility] [place] [address] [place] [address] Social History Tobacco Use Types Packs/Day Years Used Date Smoking Tobacco: Never Comments:Never smoker Sex and Gender Information Value Date Recorded Sex Assigned at Not on file Legal Sex Male 4:53 PM EDT Gender Identity Not on file Sexual Orientation Not on file documented as of this encounter Plan of Treatment Not on file documented as of this encounter Visit Diagnoses Not on filedocumented in this encounter Care Teams Flame Brazing Machine Operator Relationship Specialty Start Date End Date Taisha Potter MD [address] [place] [address] PCP - General 02/04/17 10/07/22 documented as of this encounter
--- OUTSIDE RECORDS SUMMARY | 2025-06-14 07:54 | XMS_ITS | Clinical Summary ---
Author Organization [facility] Address [address] [place] [address] Phone Care Team Providers Care Retail Merchandiser Technician Name Role Phone Unavailable Primary Care Provider Unavailabl e Allergies Active Allergy Reactions Criticality Noted Date Comments Amoxicillin Medications No known medications Resolved Problems Problem Noted Date Diagnosed Date Resolved Date Need for case management follow-up 04/23/2020 05/05/2021 Overview (04/23/2020): STD screen not done due to national shortage of tests Immunizations Immunization Administration Dates Next Due DTaP 5 10/05/2004, 2,05/05/2001,03/03,2000 Hep A, ped/adol 03/30/2017,02/20/2016 Hep B, ped/adol 07/07/2001,2000,2000 Hib (PRP-T) 12/27/2001, 1,03/03/2001,12/05 IPV 10/05/2004, 1,03/03/2001,12/05 Influenza, injectable, quadr ivalent, preservative free 03/24/2020 MMR 10/05/2004,10/04/2001 Meningococcal B Trumenba 04/23/2020,02/08/2019 Meningococcal Conj (Menactra) MCV4P 03/30/2017,0 12/06/2012 Pneumococcal Conjugate 10/05/2004,2000,03/03/2001,12/05 Tdap 12/06/2012 Varicella 11/04/2008,10/04/2001 Family History Medical History Relation Name Comments Cancer Maternal Grandfather Hyperlipidemia Maternal Grandfather Hyperlipidemia Maternal Grandmother Cancer Paternal Grandfather Hyperlipidemia Paternal Grandfather Hyperlipidemia Paternal Grandmother Relation Name Status Comments Brother Silas Alive Father Deion Alive Maternal Grandfather Maternal Grandmother Mother Obed Alive Paternal Grandfather Paternal Grandmother Social History Tobacco Use Types Packs/Day Years Used Date Smoking Tobacco: Never Smokeless Tobacco: Never Tobacco Cessation:Counseling Given: Yes Comments:Never smoker Alcohol Use Standard Drinks/Week Comments No 0 (1 standard drink = 0.6 oz pur e alcohol) Hunger/Food Answer Date Recorded In the last 12 months, did y ou or your family ever eat less than you felt you should because there wasn't enough money for food? No 05/24/2022 Stable Housing Answer Date Recorded Are you worried that in the next 2 months you may not have stable housing? No 05/24/2022 Transportation Concerns Answer Date Rec orded In the last 12 months, have you or your family ever had to go without healthcare because you didn't have a way to get there? No 05/24/2022 Hazards in Home Answer Date Recorded Think about the place you li ve. Do you have problems with any of the following? Pests (mice or roaches), mold, no/not working smoke detectors, water leaks, no window guards. No 2021 Financing Utilities Answer Date Recorde d In the last 12 months, has t he electric, gas, oil, or water company threatened to shut off your services in your home? No 05/24/2022 Safety at Home Answer Date Recorded Are you or your family worried about feeling saf e in your home? No 05/24/2022 Outside Support Answer Date Recorded Do you feel that you need mo re support from other people or programs to help you care for yourself or your family? No 05/24/2022 Understanding Health Concerns Answer Da te Recorded Do you need help understandi ng your or your child's healthcare needs (diagnosis, medications, plan, etc.)? No 05/24/2022 Financing Health Concerns Answer Date R ecorded In the last 12 months, was t here a time when your child needed to see a doctor or get medications or supplies but could not because of cost? No 05/24/2022 Missing School or Work Answer Date Rafael rded Did you or your child miss s chool or work because of a health problem that could have been avoided? No 05/24/2022 Sex and Gender Information Value Date Recorded Sex Assigned at Not on file Legal Sex Male 4:53 PM EDT Gender Identity Not on file Sexual Orientation Not on file Last Filed Vital Signs Vital Sign Reading Time Taken Comments Blood Pressure 130/82 05/24/2022 1:41 PM EST Pulse 103 05/24/2022 1:41 PM EST Temperature 36.3 C (97.3 F) 09/10/2019 9:47 AM EDT Respiratory Rate 16 05/30/2019 11:01 AM EST Oxygen Saturation - - Inhaled Oxygen Concentration - - Weight 97.6 kg (215 lb 3.2 oz) 05/24/2022 1:41 P M EST Height 181.6 cm (5' 11.5 ) 05/24/2022 1:41 PM ES T Body Mass Index 29.6 05/24/2022 1:41 PM EST Plan of Treatment Health Maintenance Due Date Last Done Comments HPV Vaccines (1 - Male 3-dos e series) 10/04/2015 DTaP,Tdap,and Td Vaccines (7 - Td or Tdap) 12/06/2022 12/06/2012, 10/05/2004, 03/26/2002, Additional history exists Influenza Vaccines (#1) 2025 03/24/2020 COVID-19 Vaccine (2024-2 6 season) 2025 06/23/2021, 08/14/2020, 07/17/2020 Hepatitis B Vaccines Completed 07/07/2001, 2000, 2000 HIB Vaccines Completed 12/27/2001, 02/2001, 03/03/2001, Additional history exists IPV Vaccines Completed 10/05/2004, 02/2001, 03/03/2001, Additional history exists MMR Vaccines Completed 10/05/2004, 10/04/2001 Pneumococcal Vaccine Completed 10/05/2004, 05/05/2001, 03/03/2001, Additional history exists Varicella Vaccines Completed 11/04/2008, 10/04/2001 Hepatitis A Vaccines Completed 03/30/2017, 02/20/20 16 Meningococcal Vaccine Completed 03/30/2017, 013 Men B Vaccine Completed 04/23/2020, 02/08/2019
--- OUTSIDE RECORDS SUMMARY | 2025-06-14 07:54 | XMS_ITS | Encounter Summary ---
Author Organization [facility] Address [address] [place] [address] Phone Care Team Providers Care Width Stripper Name Role Phone Taisha Potter MD Primary Care Provider [phone]- [phone] Reason for Visit * Reason Comments Med Refill Encounter Details Date Type Department Care Team (Late st Contact Info) Description 05/18/2019 Refill [facility] [place] [address] [place] [address] Taisha Potter MD [address] [place] [address] Acne vulgaris Social History Tobacco Use Types Packs/Day Years Used Date Smoking Tobacco: Never Smokeless Tobacco: Never Comments:Never smoker Alcohol Use Standard Drinks/Week Comments No 0 (1 standard drink = 0.6 oz pur e alcohol) Hunger/Food Answer Date Recorded No 02/08/2019 Stable Housing Answer Date Recorded 0 02/08/2019 Transportation Concerns Answer Date Rec orded No [...] encounter Miscellaneous Notes * Telephone Encounter - Tabitha Coleman LPN - 05/18/2019 10:56 AM EST Left message to call for appt/JOD * Telephone Encounter - Taisha Potter MD - 05/18/2019 10:33 AM EST Tabitha - I refilled med for a month but pt needs to come in for a recheck for acne - can you please call mom to arrange? Thanks. PPP * Telephone Encounter - Tabitha Coleman LPN - 05/18/2019 8:00 AM EST Refill request for Minocycline. Last PE 02/08/19/JOKary documented in this encounter Plan of Treatment Not on file documented as of this encounter Visit Diagnoses Diagnosis Acne vulgaris Other acne documented in this encounter Care Teams Width Stripper Relationship Specialty Start Date End Date Taisha Potter MD [address] [place] [address] RANI Ortiz [address] PCP - General 02/04/17 10/07/22 documented as of this encounter
[2025-06-14 07:58] VITALS: BP 120/70; PULSE 103; RESP 12; TEMP 36.4; O2SAT 98; BMI 29.1
[2025-06-14 08:20] VITALS: PULSE 92
== END 2025-06-14 08:20 | disposition home or self-care (01) ==
LOC: HO.HMCFM 07:51
PROVIDERS: PCP Nurse Practitioner Family; Visit Provider Nurse Practitioner Family
DX: Z00.00 Encounter for general adult medical examination without abnormal findings (principal); E78.2 Mixed hyperlipidemia; E55.9 Vitamin D deficiency, unspecified; R74.8 Abnormal levels of other serum enzymes; Z28.21 Immunization not carried out because of patient refusal